=== PATIENT | male | born 1955 | race Caucasian/White ===

== ENCOUNTER 2017-04-13 11:08 | Emergency (ER) | payer OTHER ==
[~2017-04-13] VITALS: Ht 172.7 cm; Wt 73.3 kg
[2017-04-13 14:34] VITALS: BP 150/71
== END 2017-04-13 14:34 | disposition home or self-care (01) ==
LOC: EME 11:08
DX: S09.90XA Unspecified injury of head, initial encounter (principal); W20.8XXA Other cause of strike by thrown, projected or falling object, initial encounter
CPT/HCPCS: 70450; 99281; 99284